=== PATIENT | male | born 1935 | race Caucasian/White ===

== ENCOUNTER 2020-10-04 12:51 | Emergency (ER) | payer MEDICARE, OTHER, SELFPAY ==
[2020-10-04 13:02] VITALS: BP 148/95; PULSE 78; RESP 18; TEMP 36.7; O2SAT 96; BMI 25.0
[2020-10-04 13:15] VITALS: BP 135/110; PULSE 86; O2SAT 96
--- NOTE | 2020-10-04 13:33 | ED_ITS ---
HPI - Abdominal Pain General: Chief Complaint: Abdominal Pain Stated Complaint: ABD PAIN Time Seen by Provider: 10/04/20 13:14 History of Present Illness: HPI narrative: Patient is an 85-year-old male comes to the ED with abdominal pain. Patient has a past surgical history of cholecystectomy, and a nephrectomy. Patient has a history of kidney stones as well. Patient says symptoms have been going on now for 3 days. He says the abdominal pain is episodic and will be a really sharp pain that lasts for maybe 30 to 60 seconds. The pain is located in the periumbilical region. He has more frequent episodes of pain at night when laying in bed and says he has not gotten much sleep due to the pain. Patient says he does have frequent constipation and takes a stool softener daily to help manage that. He says his last bowel movement was 2 days ago and it was hard ED only got a little bit out. Denies any fever, chills, chest pain, shortness of breath, nausea/vomiting, bladder symptoms. Associated Symptoms: Reports constipation; Denies chills, diarrhea, dysuria, fever(s), hematochezia, hematuria, nausea and vomiting Review of Systems Const: Denies: fever(s), chills or fatigue Eyes: Denies: change in vision or eye discomfort ENMT: Denies: throat pain, odynophagia, nasal discharge or nasal congestion Card: Denies: chest pain, palpitations, edema, swelling of feet/ankles, dyspnea on exertion or orthopnea Resp: Denies: dyspnea, productive cough or non-productive cough GI: Reports: abdominal pain and constipation; Denies: nausea, vomiting, diarrhea or hematochezia : Denies: flank pain, difficulty urinating, dysuria or hematuria Musc: Denies: neck pain, back pain or extremity swelling Skin/Breast: Denies: rash or new lesions Neuro: Denies: headache(s), numbness in extremities or weakness in extremities Physical Exam Const: COMMON NORMALS: no acute distress, patient oriented x3, healthy appearing and alert GENERAL APPEARANCE: cooperative and comfortable HENMT: COMMON NORMALS: normocephalic HEAD & SCALP: normocephalic MOUTH: Normal oral and palatal mucosa present THROAT: posterior oropharynx normal and uvula midline Neck/C-Spine: COMMON NORMALS: supple GENERAL: Yes normal visual inspection Resp: COMMON NORMALS: normal respiratory effort, No retractions, No use of accessory muscles and clear to auscultation bilaterally AUSCULTATION: clear to auscultation bilaterally Cardio: COMMON NORMALS: regular rate, regular rhythm, S1 normal heart sound present, S2 normal heart sound present, No gallops present (Cardio), No clicks present (Cardio), No murmurs present (Cardio) and Peripheral pulses 2+ throughout RATE: regular rate RHYTHM: regular rhythm HEART SOUNDS: S1 normal heart sound present and S2 normal heart sound present PERIPHERAL PULSES: Peripheral pulses 2+ throughout GI: COMMON NORMALS: Normal to inspection, nondistended, normoactive bowel sounds present, Soft to palpation and no masses PALPATION: Yes Soft to palpation and Yes Tenderness to palpation present (GI) Details: other (Mild periumbilical tenderness) : COMMON NORMALS: Yes no CVA tenderness BLADDER/KIDNEY EXAM: Yes no CVA tenderness Back/Pelvis: COMMON NORMALS: no CVA tenderness Extremity: COMMON NORMALS: normal to inspection Neuro: COMMON NORMALS: patient oriented x3 SENSORIUM/ORIENTATION: Yes alert GAIT: Yes Normal gait present Skin: GENERAL SKIN EXAM: dry skin Course Vital Signs: Vital signs: Vital Signs Temperature 98.0 F 10/04/20 13:02 Pulse Rate 75 10/04/20 16:18 Respiratory Rate 18 10/04/20 13:02 Blood Pressure 133/76 10/04/20 16:18 Pulse Oximetry 96 10/04/20 16:18 MDM - Abdominal Pain MDM Narrative: Medical decision making narrative: Patient is a 85-year-old m maximiliano comes to the ED with periumbilical abdominal pain and constipation. Patient has not had a bowel movement in 2 days and his last bowel movement was hard and just a little came out. Patient appears nontoxic and in no acute distress or pain. He has some mild periumbilical tenderness upon palpation, but rest of exam is benign. All labs were unremarkable. CT of abdomen pelvis showed some mild small bowel enteritis. Patient diagnosed with constipation and enteritis. He was sent home with a prescription for MiraLAX and told to continue taking a stool softener. I also told him to advance diet as tolerated and start slow with a clear liquid diet. Patient also takes a stool softener daily I told the continue taking that. Follow-up with PCP in 7 to 10 days for reevaluation. Return to ED precautions given. Patient understood agree with plan. Lab Data: Attestation: I reviewed the patient's lab results. Labs: Lab Results 10/04/20 10/04/20 10/04/20 Range/Units 14:15 14:15 15:02 WBC 10.1 H (4.0-10.0) 10^3/ uL RBC 5.11 (4.1-5.3) 10^6/u L Hgb 16.3 (11.7-16.6) g/dL Hct 47.0 (42.0-52.0) % MCV 92.0 (80-94) fL MCH 31.9 (28.0-34.0) pg MCHC 34.7 (30.0-36.0) g/dL RDW 12.6 (12.1-15.1) % Plt Count 218 (130-400) 10^3/c mm MPV 10.6 H (7.4-10.4) fL Neut % (Auto) 75.9 % Lymph % (Auto) 15.5 % [place] % (Auto) 7.1 % Eos % (Auto) 1.1 % Baso % (Auto) 0.2 % Neut # (Auto) 7.66 (1.8-7.7) 10^3/u L Lymph # (Auto) 1.6 (0.8-4.8) 10^3/u L [place] # (Auto) 0.7 (0.2-0.9) 10^3/u L Eos # (Auto) 0.1 (0.0-0.8) 10^3/u L Baso # (Auto) 0.0 (0.0-0.1) 10^3/u L Nucleated RBC % (a uto) 0 % Nucleated RBCs # 0.0 /100WBC Sodium 138 (136-145) mmol/L Potassium 4.5 (3.5-5.1) mmol/L Chloride 99 (98-107) mmol/L Carbon Dioxide 28 (22-29) mmol/L Anion Gap 15.5 (5-19) BUN 18 (8-23) mg/dL Creatinine 1.0 (0.7-1.2) mg/dL GFR Calculation Not Reportable Glucose 122 H (65-115) mg/dL Calculated Osmolal ity 289 (285-295) mOsm/k g Calcium 9.0 (8.5-10.5) mg/dL Total Bilirubin 0.4 (0.15-1.2) mg/dL AST 18 (0-40) U/L ALT 17 (0-41) U/L Alkaline Phosphata se 57 (40-130) IU/L Total Protein 6.7 (6.6-8.7) g/dL Albumin 4.3 (3.5-5.2) g/dL Globulin 2.4 (1.3-4.6) g/dL Lipase 23 (13-60) U/L Urine Color Yellow (Yellow) Urine Appearance Clear (CLEAR) Urine pH 5 (5-7) Ur Specific Gravit y 1.020 (1.005-1.030) Urine Protein Neg (Negative) Urine Glucose (UA) Norm (Normal) Urine Ketones Negative (Negative) Urine Blood Neg (Negative) Urine Nitrate Negative (Negative) Urine Bilirubin Neg (Negative) Urine Urobilinogen Norm (Negative) mg/dL Ur Leukocyte Gill ase Negative (Negative) Urine RBC None (0-2) /hpf Urine WBC None (0-5) /hpf Ur Squamous Epith Cells None (0-5) /hpf Amorphous Sediment Not Reportable Urine Bacteria None (NONE) /hpf Imaging Data ^: CT Abd/Pel: Attestation: I personally reviewed and interpreted this imaging study as follows: Radiologist's impression: [address] [address] [address] Scan Report Signed Patient: Barbara Leon Unit #: [id number] : 1935 Age/Sex: 85 / M ADM Date: 10/04/20 Loc: ER Room/Bed: Attending Dr: Ordering Provider/Ordering MD: Ben Ravi Date of Service: 10/04/20 Procedure(s): CT abdomen pelvis w con* [id number] Accession Number(s): [id number] Report Number: [id number] WS: [id number] CT ABDOMEN AND PELVIS WITH CONTRAST HISTORY: abdominal pain with constipation TECHNIQUE: Imaging performed of the abdomen and pelvis with IV contrast. Single phase imaging of the abdomen. Coronal and sagittal reformats are submitted. All CT scans at [facility] use at least one of these dose optimization techniques: automated exposure control; mA and/or kV adjustment per patient size (includes targeted exams where dose is matched to clinical indication); or iterative reconstruction. IV CONTRAST: Omnipaque 300; 95 mL IV. Oral contrast: No DLP: 1478.41 mGy.cm COMPARISON: None available. Lower thorax: Dependent changes at the lung bases. Heart is normal size. No hiatal hernia. Liver/biliary system: Normal size liver. 5 mm hypodensity in the posterior RIGHT lobe of the liver is probably too small to characterize. There is a small amount of perihepatic fluid. No bile duct dilatation. Gallbladder: Status post cholecystectomy. Pancreas: Normal size pancreas and pancreatic duct. No adjacent inflammation. Spleen: Normal size with granulomata. Adrenal glands: Normal. Right kidney: Normal. Left kidney: Small extrarenal pelvis and a parapelvic cyst. Mild cortical thinning. No obstruction. Aorta: Moderate atherosclerosis with no aneurysm. Intimal thickening and calcified plaque throughout the aorta. Calcification at the origin of the mesenteric arteries. Lymphadenopathy: None. Free fluid: Small amount of ascites adjacent to the liver and in the pelvis. No free air. GI tract: Mild circumferential mucosal thickening with pericolonic edema involving small bowel loops in the RIGHT abdomen. Mucosal thickening extends to the terminal ileum. No obstructive pattern. Sigmoid diverticulosis without diverticulitis. Abdominal wall: Unremarkable abdominal wall. No hernia. Pelvis: Urinary bladder is normally distended. Mild enlargement the prostate gland. Small amount of free fluid. Bones: 10 mm anterolisthesis of L5. 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 Bilateral pars defects at L5. CT/CT abdomen pelvis w con* [id number] IMPRESSION: 1. Distal small bowel enteritis.. 2. Small amount of perihepatic and pelvic free fluid. 3. Prior cholecystectomy. 4. No GI tract obstruction. 5. Sigmoid diverticulosis without acute diverticulitis. Dictated By: Estefania Coombs DO Signed By: Estefania Coombs DO Signed Date/Time: 10/04/20 1522 DD/ 1516 KUB: Attestation: I personally reviewed and interpreted this imaging study as follows: Rad[facility]ologist's impression: [facility] [address] [place] [address] XRay Report Signed Patient: Barbara Leon Unit #: [id number] : 1935 Age/Sex: 85 / M ADM Date: 10/04/20 Loc: ER Room/Bed: Attending Dr: Ordering Provider/Ordering MD: Ben Ravi Date of Service: 10/04/20 Procedure(s): XR KUB portable [id number] Accession Number(s): [id number] Report Number: [id number] WS: [id number] KUB, portable AP supine, 10/04/2020 Clinical Data: abdominal pain and constipation Comparison: CT abdomen and pelvis, 10/04/2020 Findings: No abnormal intraabdominal masses or calcifications are seen. There is no dilatated small bowel or evidence of obstruction. There is contrast material in the kidneys, ureters and bladder from the recent CT scan. There is air in the small bowel but no evidence of obstruction. There are clips in the right upper quadrant f rom a cholecystectomy. Minimal arthritic change of both hips is seen. 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 XR/XR KUB portable [id number] Impression: Mild generalized ileus. Dictated By: Keyla Murray MD Signed By: Keyla Murray MD Signed Date/Time: 10/04/201524 DD/ 152 Discharge Plan Discharge Patient Disposition: Home Clinical Impression: Enteritis Constipation Qualifiers: Constipation type: slow transit constipation Qualified Code(s): K59.01 - Slow transit constipation Condition: Stable Prescriptions: New Miralax 17 gram/dose powder 17 g PO DAILY 4 Days Qty: 119 RF: 0 No Action Tylenol Ex Str Arthritis Pain 500 mg Tablet 500 - 1,000 mg PO Q6H PRN (Reason: Pain) RF: 0 diclofenac sodium 75 mg tablet,delayed release (DR/EC) 75 mg PO BEDTIME RF: 0 Osteo Bi-Flex 250-200 mg Tablet 2 tab PO TID RF: 0 Discharge Orders: Discharge ED (Routine); Ordered 10/04/20 Ordered By: Ben Ravi Discharge Diet: Advance as tolerated Discharge Activity: Increase activity as tolerated Patient Instructions: Constipation (ED), High Fiber Diet (ED) Activity Restrictions/Additional Instructions: Follow-up with medical provider as directed in 5 to 7 days for reevaluation. Take medications as prescribed. Continue taking your stool softener and take MiraLAX daily as needed to help with bowel movements. Drink plenty fluids to stay hydrated. Start slow with your diet for the next day or 2 and then advance as tolerated. Eat plenty of fruits and vegetables and high-fiber foods. Return to the ER or your medical provider if condition worsens. Please read and understand discharge instructions. Thank you for choosing [facility] for your healthcare needs today. Please realize this is an emergency room and that we are providing you with a medical screening exam and this may not be complete and all inclusive of all the testing and or work up that you may need to determine your ailment or severity of your illness. It is very important that you follow up as instructed or that you return to the Emergency Department should you have concerns or if your condition changes or worsens in any way. Coding Level of Care Code ED Epidemiology Internship for [facility] Fwd Exam Comprehensive
[2020-10-04 13:47] VITALS: PULSE 71; O2SAT 91
[2020-10-04 14:23] VITALS: BP 140/81; PULSE 75; O2SAT 95
[2020-10-04 14:31] LABS: Basophils % 0.2 %; Eosinophils # 0.1 10^3/uL (0.0-0.8); Eosinophils % 1.1 %; Hemoglobin 16.3 g/dL (11.7-16.6); Lymphocytes # 1.6 10^3/uL (0.8-4.8); Lymphocytes % 15.5 %; Mean Corpuscular HGB Conc 34.7 g/dL (30.0-36.0); Mean Corpuscular Hemoglobin 31.9 pg (28.0-34.0); Mean Platelet Volume 10.6 fL (7.4-10.4); Monocytes # 0.7 10^3/uL (0.2-0.9); Monocytes % 7.1 %; Neutrophils # 7.66 10^3/uL (1.8-7.7); Neutrophils % 75.9 %; Nucleated Red Blood Cells % 0 %; Platelet Count 218 10^3/cmm (130-400); Red Blood Count 5.11 10^6/uL (4.1-5.3); Red Cell Distribution Width 12.6 % (12.1-15.1); White Blood Count 10.1 10^3/uL (4.0-10.0)
[2020-10-04 14:48] LABS: Alanine Aminotransferase 17 U/L (0-41); Albumin Level 4.3 g/dL (3.5-5.2); Alkaline Phosphatase 57 IU/L (40-130); Blood Urea Nitrogen 18 mg/dL (8-23); Carbon Dioxide 28 mmol/L (22-29); Chloride 99 mmol/L (98-107); Creatinine Clr Calc Pharmacy 51.6466; Globulin 2.4 g/dL (1.3-4.6); Glucose 122 mg/dL (65-115); Lipase 23 U/L (13-60); Osmolality Calculated 289 mOsm/kg (285-295); Sodium 138 mmol/L (136-145); Total Bilirubin 0.4 mg/dL (0.15-1.2); Total Protein 6.7 g/dL (6.6-8.7)
[2020-10-04 14:51] LABS: Anion Gap 15.5 (5-19); Aspartate Amino Transferase 18 U/L (0-40); Potassium 4.5 mmol/L (3.5-5.1)
--- NOTE | 2020-10-04 14:54 | XR_ITS ---
WS: [id number] KUB, portable AP supine, 10/04/2020 Clinical Data: abdominal pain and constipation Comparison: CT abdomen and pelvis, 10/04/2020 Findings: No abnormal intraabdominal masses or calcifications are seen. There is no dilatated small bowel or ev idence of obstruction. There is contrast material in the kidneys, ureters and bladder from the recent CT scan. There is air in the small bowel but no evidence of obstruction. There are clips in the right upper quadrant from a cholecystectomy. Minimal arthritic change of both hips is seen. There is osteoarthritis of the lumba r spine. XR/XR KUB portable [id number] Impression: Mild generalized ileus.
[2020-10-04 15:17] LABS: Bilirubin Urine Neg (Negative); Blood Urine Neg (Negative); Glucose Urine UA Norm (Normal); Ketones Urine Negative (Negative); Leukocyte Esterase Urine Negative (Negative); Nitrate Urine Negative (Negative); Protein Urine Neg (Negative); Urine Appearance Clear (CLEAR); Urine Color Yellow (Yellow); Urobilinogen Urine Norm (Negative); pH Urine 5 (5-7)
[2020-10-04 15:23] LABS: Add Urine Culture? No
[2020-10-04 15:30] VITALS: BP 129/75; PULSE 71; O2SAT 95
[2020-10-04 16:18] VITALS: BP 133/76; PULSE 75; O2SAT 96
--- NOTE | 2020-10-08 15:03 | PC.NURSE ---
Sodium chloride 500mL administered at 1345 on 10/04/20
== END 2020-10-04 16:12 | disposition home or self-care (01) ==
PROVIDERS: Emergency Provider Physician Assistant
DX: K52.9 Noninfective gastroenteritis and colitis, unspecified (principal); K59.01 Slow transit constipation
CPT/HCPCS: 74018; 74177; 80053; 81001; 83690; 85025; 99283; Q9967

== ENCOUNTER → 2023-02-26 13:14 | Outpatient (BNVA) | payer MEDICARE, OTHER, SELFPAY | PROVIDERS: PCP Registered Nurse; Visit Provider Podiatrist Foot & Ankle Surgery | DX: B35.1 Tinea unguium (principal); I73.9 Peripheral vascular disease, unspecified | CPT/HCPCS: 99203 ==

== ENCOUNTER → 2023-03-12 10:31 | Outpatient (BNVA) | payer MEDICARE, OTHER, SELFPAY | PROVIDERS: PCP Registered Nurse; Visit Provider Podiatrist Foot & Ankle Surgery | DX: I73.9 Peripheral vascular disease, unspecified | CPT/HCPCS: 99213 ==